=== PATIENT | male | born 1985 | race Two or more races ===

== ENCOUNTER 2024-08-07 00:08 | Emergency (ER) | payer MEDICAID, OTHER ==
[~2024-08-07] VITALS: Ht 172.7 cm; Wt 92.5 kg
[2024-08-07 00:20] VITALS: BP 126/97; PULSE 74; RESP 18; TEMP 98.2; O2SAT 96
[2024-08-07] MEDS: KETOROLAC TROMETH 60MG/2ML VIAL IM ONE (00:30)
[2024-08-07] MEDS ORDERED: KETOROLAC TROMETH 30 MG/ML 1ML VIAL ONE (01:01)
[2024-08-07] MEDS: KETOROLAC TROMETH 30 MG/ML 1ML VIAL IM ONE (01:17)
[2024-08-07] MEDS ORDERED: IBUP-1455 PO (01:37)
== END 2024-08-07 02:35 | disposition home or self-care (01) ==
LOC: ER 00:08
DX: S16.1XXA Strain of muscle, fascia and tendon at neck level, initial encounter (principal); S39.012A Strain of muscle, fascia and tendon of lower back, initial encounter; V89.2XXA Person injured in unspecified motor-vehicle accident, traffic, initial encounter; Y93.89 Activity, other specified; Y92.89 Other specified places as the place of occurrence of the external cause; Y99.8 Other external cause status
CPT/HCPCS: 72040; 72100; 96372; 99284; J1885